=== PATIENT | male | born 1930 | race Hispanic/Latino ===

== ENCOUNTER 2017-10-29 09:48 | Inpatient (IN) | payer MEDICARE, OTHER ==
--- NOTE | 2017-10-29 10:29 | ED PDOC ---
Arrival/HPI - General Chief Complaint: Dizziness/Lightheaded Time Seen by Provider: 10/29/17 09:49 Historian: Patient, Other (friends) - History of Present Illness Narrative History of Present Illness (Text): 10/29/17 10:24 A 87 year old male, whose past medical history includes arthritis, is brought in by EMS from home, accompanied by friends, and presents to the emergency department complaining of dizziness. Patient reports yesterday he was feeling normal, ate regularly, and went to bed at 23:30. States waking up this morning at 07:00 and when trying to get up, began experiencing symptom and felt as though about to fall. He notes dizziness still occurs when sitting. Patient denies any headache, chest pain, shortness of breath, nausea, vomiting, urinary symptoms, dark stools, or any other complaints at this time. Also, patient mentions having seen consulting services manager Dr. Medrano 1-2 weeks ago for cardio evaluation , and was recommended to have stress test performed. PMD: Dr. Aguilar Time/Duration: Other (this morning at 07:00) Past Medical History - Provider Review Nursing Documentation Reviewed: Yes - Cardiac Hx Hypertension: Yes - Pulmonary Hx Respiratory Disorders: No - Neurological Hx Neurological Disorder: No - HEENT Hx HEENT Disorder: No - Renal Hx Renal Disorder: No - Endocrine/Metabolic Hx Endocrine Disorders: No - Hematological/Oncological Hx Blood Disorders: No - Integumentary Hx Dermatological Disorder: No - Musculoskeletal/Rheumatological Hx Arthritis: Yes - Gastrointestinal Hx Gastrointestinal Disorders: No - Genitourinary/Gynecological Hx Genitourinary Disorders: No - Psychiatric Hx Psychophysiologic Disorder: No Hx Substance Use: No Family/Social History - Physician Review Nursing Documentation Reviewed: Yes Family/Social History: No Known Family HX Smoking Status: Never Smoked Hx Alcohol Use: No Hx Substance Use: No Allergies/Home Meds Allergies/Adverse Reactions: Allergies Penicillins Allergy (Verified 10/29/17 10:00) RASH Home Medications: Home Meds Medication Instructions Recorded Confirmed Aspirin [Ecotrin] 81 mg PO DAILY 10/29/17 10/29/17 Metoprolol Succinate 25 mg PO DAILY 10/29/17 10/29/17 Nortriptyline [Nortriptyline HCl] 25 mg PO HS 10/29/17 10/29/17 Valsartan/Hydrochlorothiazide 1 tab PO DAILY 10/29/17 10/29/17 [Valsartan-Hctz 160-12.5 mg Tab] Zolpidem [Ambien] 10 mg PO HS 10/29/17 10/29/17 Review of Systems - Review of Systems Constitutional: Fatigue. absent: Fevers Respiratory: absent: SOB Cardiovascular: absent: Chest Pain, MAYNARD, Orthopnea, Syncope Gastrointestinal: absent: Stool Changes (no dark stools), Nausea, Vomiting Genitourinary Male: absent: Urinary Output Changes Skin: absent: Rash Neurological: Dizziness, Disequilibrium. absent: Headache, Focal Weakness, Speech Changes, Facial Droop Endocrine: absent: Polyuria, Polydipsia Hemo/Lymphatic: absent: Easy Bleeding Physical Exam - Physical Exam Narrative Physical Exam (Text): Head: Atraumatic. Normocephalic. Eyes: PERRL. EOMI. Conjunctivae are not pale. ENT: Mucous membranes are moist and intact. Oropharynx is clear and symmetric. Neck: Supple. Full ROM. No JVD. No lymphadenopathy. Cardiovascular: Regular rate. Regular rhythm. Harsh systolic murmur. Pulmonary/Chest: No evidence of respiratory distress. Clear to auscultation bilaterally. No wheezing, rales or rhonchi. Abdominal: Soft and non-distended. There is no tenderness. No rebound, guarding, or rigidity. No organomegaly. Good bowel sounds. Back: No CVA tenderness. Extremities: No pitting edema. No cyanosis. No clubbing. Full range of motion in all extremities. No calf tenderness. Skin: Skin is warm and dry. No petechiae. No purpura. Neurological: Alert, awake, and oriented to person, place, time, and situation. Normal speech. No facial droop. No pronator drift. No focal motor or sensory deficits. Psychiatric: Good eye contact. Normal interaction, affect, and behavior. Vital Signs Reviewed: Yes Vital Signs Temp Pulse Resp BP Pulse Ox 10/29/17 13:00 80 18 155/98 H 96 10/29/17 11:38 80 18 155/77 H 96 10/29/17 10:01 97.6 F 73 16 156/85 H 98 Temperature: Afebrile Blood Pressure: Hypertensive Pulse: Regular Respiratory Rate: Normal Appearance: Positive for: Well-Appearing Pain Distress: None Mental Status: Positive for: Alert and Oriented X 3 Medical Decision Making ED Course and Treatment: 10/29/17 10:30 Impression: 87 year old male with dizziness. Differential Diagnosis included but are not limited to: chf, valvular disease, cad, neuro disease, arrhytmia Plan: -- EKG -- Head CT -- Chest X-ray -- Labs -- Urinalysis -- Reassess and disposition Progress Notes: Patient complains of dizziness since this AM. On initial exam, no fever, no headache, but dizziness persists while at rest. Exam is significant for prominent heart murmur. He denies any chest pain or shortness of breath. Patient reportedly recently saw consulting services manager Dr. Medrano who had recommended stress test. 10/29/2017 11:[address] IMPRESSION: Limited age-related neuro dengerative are appreciated with no definite acute intracranial findings. Dictator: Mika Carrasquillo MD 10/29/2017 11:25 Chest X-ray IMPRESSION: Borderline CHF patttern. No acute infiltrate or definite pleural effusion bilaterally. Dictator: Mika Carrasquillo MD 10/29/17 12:[address] Medrano. Re-exam, neuro exam intact. Limitations of ct head reviewed with patient. Given cxr, bnp and hear exam findings, highly suspicious of valvular heart disease, I communicated directly with consulting services manager and PMD, patient admitted to telemetry bed for serial exams, cardiac and neuro monitoring. Continues to deny any chest pain or sob in ED. - Lab Interpretations Lab Results: 10/29/17 10:40 10/29/17 10:40 Lab Results 10/29/17 10:40: Sodium 141, Potassium 4.3, Chloride 103, Carbon Dioxide 29, Anion Gap 13, BUN 30 H, Creatinine 1.2, Est GFR ( Amer) > 60, Est GFR ( Non-Af Amer) 57, Random Glucose 136 H, Calcium 9.8, Magnesium 2.0, Total Bilirubin 0.7, AST 29, ALT 25, Alkaline Phosphatase 72, Lactate Dehydrogenase 480, Total Creatine Kinase 38, Troponin I 0.01, NT-Pro-B Natriuret Pep 1210 H, Total Protein 6.6, Albumin 3.7, Globulin 2.8, Albumin/Globulin Ratio 1.3 10/29/17 10:40: PT 11.8, INR 1.03, APTT 30.8 10/29/17 10:40: WBC 11.1 H D, RBC 4.49, Hgb 13.6 L, Hct 41.0 L, MCV 91.3, MCH 30.3, MCHC 33.2, RDW 13.5, Plt Count 141, MPV 10.6, Gran % 53.8, Lymph % (Auto) 40.9 H, [place] % (Auto) 4.3, Eos % (Auto) 0.6 L, Baso % (Auto) 0.4, Gran # 5.96, Lymph # (Auto) 4.5 H, [place] # (Auto) 0.5, Eos # (Auto) 0.1, Baso # (Auto) 0.04 I have reviewed the lab results: Yes - RAD Interpretation Radiology Orders: 10/29/17 10:28 HEAD W/O CONTRAST [CT] Stat CHEST ONE VIEW [RAD] Stat - EKG Interpretation EKG Interpretation (Text): 10/29/17 19:55 EKG at 10:05 normal sinus rhythm with first degree av block and frequent pvcs Interpreted by ED Physician: Yes Type: 12 lead EKG - Medication Orders Current Medication Orders: Aspirin (Ecotrin) 81 mg PO DAILY CHANDAN Last Admin: 10/29/17 18:20 Dose: 81 mg Furosemide (Lasix) 40 mg IV DAILY CHANDAN Losartan Potassium (Cozaar) 100 mg PO DAILY CHANDAN Metoprolol Tartrate (Lopressor) 25 mg PO BRKDIN CHANDAN Nortriptyline HCl (Pamelor) 25 mg PO HS CHANDAN Potassium Chloride (Klor-Con 10) 10 meq PO BRK CHANDAN Last Admin: 10/29/17 18:20 Dose: 10 meq Zolpidem Tartrate (Ambien) 5 mg PO HS PRN PRN Reason: Insomnia Discontinued Medications Pneumococcal Polyvalent Vaccine (Pneumovax 23 Vaccine) 0.5 ml IM .ONCE ONE Stop: 10/29/17 16:10 Zolpidem Tartrate (Ambien) 10 mg PO HS PRN PRN Reason: Insomnia - Scribe Statement The provider has reviewed the documentation as recorded by the Kirti Collins Provider Scribe Attestation: All medical record entries made by the Scribe were at my direction and personally dictated by me. I have reviewed the chart and agree that the record accurately reflects my personal performance of the history, physical exam, medical decision making, and the department course for this patient. I have also personally directed, reviewed, and agree with the discharge instructions and disposition. Disposition/Present on Arrival - Present on Arrival Any Indicators Present on Arrival: No History of DVT/PE: No History of Uncontrolled Diabetes: No Urinary Catheter: No History of Decub. Ulcer: No History Surgical Site Infection Following: None - Disposition Have Diagnosis and Disposition been Completed?: Yes Diagnosis: Dizziness, Near syncope, Heart murmur, Elevated brain natriuretic peptide (BNP ) level, CHF (congestive heart failure) Disposition: HOSPITALIZED Disposition Time: 11:45 Patient Plan: Admission, Telemetry Patient Problems: Current Active Problems Problem Status Onset Dizziness Acute Elevated brain natriuretic peptide (BNP) level Acute Heart murmur Acute Near syncope Acute Condition: SERIOUS
[2017-10-29 10:51] LABS: BASO # 0.04 K/mm3 (0.0-2.0); BASO % 0.4 % (0.0-3.0); EOS # 0.1 (0.0-0.7); EOS % 0.6 % (1.5-5.0); GRAN # 5.96 (1.4-6.5); GRAN % 53.8 % (50.0-68.0); HEMOGLOBIN 13.6 g/dL (14.0-18.0); LYMPH # 4.5 (1.2-3.4); LYMPH % 40.9 % (22.0-35.0); MEAN CELL VOLUME 91.3 fl (80.0-105.0); MEAN CORPUSCULAR HEMOGLOBIN 30.3 pg (25.0-35.0); MEAN CORPUSCULAR HGB CONC 33.2 g/dl (31.0-37.0); MEAN PLATELET VOLUME 10.6 fl (7.0-11.0); MONO # 0.5 (0.1-0.6); MONO % 4.3 % (1.0-6.0); RBC 4.49 10^6/uL (3.5-6.1); RED CELL DISTRIBUTION WIDTH 13.5 % (11.5-14.5); WHITE BLOOD COUNT 11.1 10^3/ul (4.5-11.0)
[2017-10-29 10:59] LABS: ALB/GLOB RATIO 1.3 (1.1-1.8); ALBUMIN 3.7 g/dL (3.0-4.8); ALT/SGPT 25 U/L (7-56); AST/SGOT 29 U/L (17-59); BLOOD UREA NITROGEN 30 mg/dL (7-21); CALCIUM 9.8 mg/dL (8.4-10.5); GFR AFRICAN-AMERICAN > 60; GFR NON-AFRICAN AMERICAN 57; INR 1.03 (0.93-1.08); PARTIAL THROMBOPLASTIN TIME 30.8 Seconds (25.1-36.5); PROTHROMBIN TIME 11.8 SECONDS (9.4-12.5)
[2017-10-29 11:10] LABS: B-TYPE NATRIURETIC PEPTIDE 1210 pg/mL (0-450); TROPONIN I 0.01 ng/mL
--- NOTE | 2017-10-29 11:21 | CT ---
PROCEDURE: CT HEAD WITHOUT CONTRAST. HISTORY: dizziness, near syncope COMPARISON: None available. TECHNIQUE: Axial computed tomography images were obtained through the head/brain without intravenous contrast. Radiation dose: Total exam DLP = 1036.49 mGy-cm. This CT exam was performed using one or more of the following dose reduction techniques: Automated exposure control, adjustment of the mA and/or kV according to patient size, and/or use of iterative reconstruction technique. FINDINGS: HEMORRHAGE: No intracranial hemorrhage. BRAIN: Good corticomedullary differentiation is seen. Mild diffuse expansion of the ventriculosulcal and cisternal spaces is appreciated with limited white matter lucency compatible with diffuse cerebral atrophy and chronic microangiopathy. No suspicious extra-axial fluid collection is identified and the midline brain anatomy appears grossly nonfocal as imaged. There is no mass effect throughout. VENTRICLES: Unremarkable. No hydrocephalus. CALVARIUM: Unremarkable. PARANASAL SINUSES: Limited multifocal ethmoid sinus disease is appreciated with a small cyst or polyp in the left maxillary sinus. MASTOID AIR CELLS: Unremarkable as visualized. No inflammatory changes. OTHER FINDINGS: None. IMPRESSION: Limited age-related neuro degenerative changes are appreciated with no definite acute intracranial findings.
--- NOTE | 2017-10-29 11:26 | RAD ---
PROCEDURE: CHEST RADIOGRAPH, 1 VIEW HISTORY: dizziness COMPARISON: None available. FINDINGS: LUNGS: No definite infiltrate appreciated bilaterally. PLEURA: No pneumothorax or pleural fluid seen. CARDIOVASCULAR: Prominent bronchovascular markings are appreciated, particularly at the bilateral bases which could be a function limited inspiratory volume. Limited CHF is difficult to exclude. Cardiac size is prominent but AP least partially magnified by technique. OSSEOUS STRUCTURES: No significant abnormalities. VISUALIZED UPPER ABDOMEN: Normal. OTHER FINDINGS: None. IMPRESSION: Borderline CHF pattern. No acute infiltrate or definite pleural effusion bilaterally.
[2017-10-29 12:42] VITALS: BMI 26.4
[2017-10-29 13:24] LABS: URINE BILIRUBIN NEGATIVE (NEGATIVE); URINE BLOOD TRACE-INTACT (NEGATIVE); URINE GLUCOSE (UA) NEGATIVE (NEGATIVE); URINE LEUKOCYTE ESTERASE NEGATIVE Leu/uL (NEGATIVE); URINE PROTEIN NEGATIVE mg/dL (<30 mg/dL)
[2017-10-29 13:31] LABS: URINE APPEARANCE CLEAR (CLEAR); URINE COLOR YELLOW (YELLOW)
[2017-10-29 13:36] LABS: URINE EPITHELIAL CELLS 0 - 2 /hpf (0-5); URINE WBC 0 - 2 /hpf (0-6)
[2017-10-29] MEDS ORDERED: Pneumococcal 23-Valent Vaccine IM ONE (16:09)
[2017-10-29] MEDS: Potassium Chloride 10 mEq ER Tab PO SCH (18:20)
--- NOTE | 2017-10-29 18:28 | CARD ---
APPROVED REPORT EKG Measurement Heart [id number] <Conclusion> Sinus rhythm with 1st degree AV block with frequent premature ventricular complexes Otherwise normal ECG
--- NOTE | 2017-10-30 04:33 | HP ---
CHIEF COMPLAINT: Near syncope. HISTORY OF PRESENT ILLNESS: This is an 87-year-old man, known to my brother, Dr. Dillan Aguilar, who sees him periodically in the office for hypertension. I am new to him, have not seen Mr. 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 The patient was in his usual state of health, saw his parboiler, Dr. Medrano, 1 or 2 weeks ago, had an echocardiogram done at that time, and scheduled for a stress test. He was home this morning, woke up out of bed, and later was getting up, and became tremendously dizzy, what he described as a lightheaded woozy feeling. No specific room spinning dizziness. No headache. No chest pain, palpitations or fluttering on the chest. No racing heart. No hot or flushed feeling, just woozy and lightheaded causing him to fall back onto the bed. He lay there a few minutes and eventually was able to get out and called help. His [id number] came, ambulance was summoned and he came to the emergency room. PAST MEDICAL HISTORY: Significant for hypertension, ventricular ectopy as well as murmur as noted above. This is his [facility] hospitalization to the [facility]. His only other visit here was for the wound center for a sore in the sacral area. MEDICATIONS: Include Ambien 10 at bedtime, losartan/HCTZ 160/12.5 every morning, nortriptyline 25 mg at bedtime, metoprolol succinate 25 mg daily, and aspirin 81 mg daily. SOCIAL HISTORY: He does not smoke, but is a former smoker. He occasionally drinks alcohol, but very little, very infrequently and very rarely. He is a with 3 sons. ALLERGIES: HE IS ALLERGIC TO PENICILLIN, TYPE OF REACTION IS UNKNOWN. REVIEW OF SYSTEMS: Significant for arthritis, especially in the shoulders; he cannot raise his shoulders over 90 degrees. He denies chest pain, palpitations, shortness of breath, cardiac, pulmonary, GI, neuro symptomatology, etc. PHYSICAL EXAMINATION: GENERAL: The patient was seen this evening in room 261, bed 1. Sitting comfortably at the edge of the bed. VITAL SIGNS: Showed blood pressure to be slightly elevated at 150/77, he is afebrile, and heart rate is in the 80s. HEENT: Head and neck significant for a forward kyphosis at the neck. Conjunctivae are pink. Mucous membranes are moist. NECK: Supple without masses. There is no JVD. HEART: Regular with frequent extrasystoles and a harsh systolic murmur heard at the upper right sternal border as well as a systolic murmur heard at the apex. ABDOMEN: Soft and nontender. EXTREMITIES: Showed significant +2 edema of the feet and ankles, but only extending a short way up to the tibial area; perhaps suspicious of dependent edema. SKIN: There is a 1.5 inch, round healing ulcerated sore on right gluteal area near midline with questionable rolled edge LABORATORY DATA: Shows slightly elevated white count at 11,000, H and H is reasonable at 13.7 and 43, platelet count is good at 188. Coags are normal. Chemistry showed BUN of 28, random glucose of 103. LFTs, renal function, creatinine are normal. BNP is slightly elevated at 1210. Troponin is negative at 0.01. Urine is unremarkable. IMPRESSION: 1. Near syncope in an 87-year-old man with....... 2. Valvular heart disease with significant murmurs, compatible with aortic stenosis and mitral regurgitation. 3. Leg edema, dependent versus congestive heart failure overloaded, perhaps related to valvular heart disease as listed above. 4. Frequent ventricular ectopy. 5. Decubitus; 1.5 cm round decubitus with rolled edge just right of the gluteal fold. PLAN: We will check with Cardiology regarding a recent echo done at the office. If not, would repeat echo tomorrow to look for critical aortic stenosis. Continue on telemetry. Add a beta-mary and increase dose to slow the heart rate into the 60s, treating what I am suspicious for, that is, . Mild use of diuretics for the leg edema. Elevation may help better. Ectopy evaluation to be determined by Dr. Medrano. Stress test that was scheduled probably should be done in this hospital stay. We will ask surgical opinion with Dr. Petr Parker, who is caring for that decubitus and may ask for a biopsy/ excision of this area to rule out pathologic reason to this nonhealing wound. Petr Aguilar MD Willie # [id number] CARMELA
--- NOTE | 2017-10-30 04:39 | CON ---
DATE: 10/29/2017 LOCATION: Patient in room 261, bed 1. REASON FOR CONSULTATION: Dizziness, hypertension, possible mild CHF. HISTORY OF PRESENT ILLNESS: An 87-year-old male who is known to have hypertension and also chronic venous stasis, admitted with a history that this morning started feeling dizziness. He felt fullness of the head. It was not associated with chest pain, palpitations or shortness of breath. Patient felt like unsteady. He felt like that he is going to fall down, but he did not fall down. PAST MEDICAL HISTORY: Patient denies any hospitalizations. He is known to have hypertension. PERSONAL HISTORY: No history of smoking or drinking. ALLERGIES: PATIENT DENIES ANY ALLERGIES. MEDICATIONS AT HOME: Patient was taking Zolpidem 10 mg p.o. at bedtime, valsartan 160 mg/HCTZ 12.5 mg p.o. daily, metoprolol succinate 75 mg p.o. daily, aspirin 81 mg p.o. daily. REVIEW OF SYSTEMS: All the systems reviewed, positive mentioned in the history, others are negative. PHYSICAL EXAMINATION: VITAL SIGNS: Blood pressure lying down 158/87, sitting 148/81, standing again 158/84, so there is no postural hypotension; respirations 18, pulse 80 and temperature 97.6. HEENT: Head is normocephalic. Eyes, pupils normal, conjunctivae normal. Nose and throat normal. NECK: JVP is low. Carotid equal. THORAX: AP diameter normal. LUNGS: No significant rales. CARDIOVASCULAR: S1 and S2, ejection systolic murmur at aortic area, but patient pansystolic murmur on the apex , which is related to mitral regurgitation. No rub. ABDOMEN: Soft. No tenderness. No organomegaly. EXTREMITIES: Patient has bilateral edema both lower legs along with prominent veins and chronic venous stasis. LABORATORY DATA: WBC 11.1, hemoglobin 13.6, hematocrit 41.0, platelet 141. Sodium 141, potassium 4.3, BUN 30, creatinine 1.2; magnesium, phosphorus, AST, ALT normal. Troponin 0.01. NT-proB natriuretic peptide 1210. Total protein and albumin normal. PT, PTT, INR normal. EKG showed sinus rhythm, prolonged [place], occasional PVCs. Chest x-ray showed cardiomegaly and mild vascular congestion. CAT scan of the head showed age related degenerative changes. Patient's previous cardiac workup, patient through our office had echocardiogram on 06/19/2017, which showed LV was mildly dilated. There was mild LV hypertrophy present. Normal LV systolic function with ejection fraction of 66%. Asymmetric septal hypertrophy, mild aortic regurgitation, [id number] mitral regurgitation, there is calcification in the aortic valve. Patient had carotid ultrasound done through our office on 06/19/2017 that showed [id number] plaque formation with very mild stenosis of 20% to 39% in both ICA, which is not significant. DIAGNOSES: Vertigo, hypertension, mild congestive heart failure probably related to hypertension and mitral regurgitation, chronic venous stasis, arthritis, dizziness, near syncope. PLAN: We will put patient on aspirin 81 mg daily, Lasix 40 mg IV daily, K-Dur 10 mEq p.o. daily, valsartan 160 mg daily. We will monitor intake, outpatient and vital signs. We will monitor blood pressure and monitor for any cardiac arrhythmia. Yenny Medrano MD
[2017-10-30 06:26] LABS: BASO # 0.05 K/mm3 (0.0-2.0); BASO % 0.5 % (0.0-3.0); EOS # 0.1 (0.0-0.7); EOS % 1.1 % (1.5-5.0); GRAN # 3.04 (1.4-6.5); GRAN % 30.2 % (50.0-68.0); HEMOGLOBIN 12.3 g/dL (14.0-18.0); LYMPH # 6.2 (1.2-3.4); LYMPH % 61.2 % (22.0-35.0); MEAN CELL VOLUME 90.5 fl (80.0-105.0); MEAN CORPUSCULAR HEMOGLOBIN 29.9 pg (25.0-35.0); MEAN PLATELET VOLUME 10.8 fl (7.0-11.0); MONO # 0.7 (0.1-0.6); RBC 4.12 10^6/uL (3.5-6.1); RED CELL DISTRIBUTION WIDTH 13.6 % (11.5-14.5); WHITE BLOOD COUNT 10.1 10^3/ul (4.5-11.0)
[2017-10-30 06:58] LABS: BLOOD UREA NITROGEN 26 mg/dL (7-21); CALCIUM 9.4 mg/dL (8.4-10.5); GFR AFRICAN-AMERICAN > 60; GFR NON-AFRICAN AMERICAN > 60
--- NOTE | 2017-10-30 07:07 | PQF CHF ---
This form is a permanent part of the medical record Dr. Aguilar, Please provide specificity for type and severity of CHF when determined. Clarification of your documentation is requested to better reflect the severity of illness and intensity of treatment of your patient. Indicators present [x] Diagnosis of CHF and/or history of CHF [x] BNP > 200 [] Imaging Finding of Pulmonary Edema /Pleural Effusions [x] Fluid/Volume Overload [x] Pitting edema [] Ejection Fraction < 40% (Indicative of Systolic Heart Failure) [x] Ejection Fraction > 40% (Indicative of Diastolic Heart Failure) [] Dyspnea / Orthopenea / Paroxysmal Nocturnal Dyspnea [] Other: Location in the medical record that reflects the above clinical findings: [] Treatment Provided: []lasix IV PHYSICIAN'S RESPONSE Based on your medical judgment of the clinical indicators outlined above, are you treating this patient for a known or suspected: [] Acute CHF [] Systolic [] Diastolic [] Combined [] Chronic CHF [] Systolic [] Diastolic [] Combined [] Acute on Chronic CHF []Systolic [] Diastolic [] Combined [] CHF due hypertension [] Acute systolic []Chronic systolic [] Acute/ chronic systolic [x] Other, please indicate: [x] Seen and admitted a few hours ago. Echo, cardiac work-up, and consult pending [x] If Unable to Determine, please check the box, sign and date. see above. admitted a few hours ago. work-up ordered and pending Present On Admission (POA) Indicator: [x] Present at the time of admission [] Not present at the time of admission [] Clinically Undetermined In responding to this query, please exercise your independent professional judgment. The fact that a question is asked does not imply that any particular answer is desired or expected. Thank you for your clarification on this documentation. If you have any questions please call:[ ] * Thank you, [ ]Jean Claude Robert [facility] #[id number] director loss prevention CARMELA
--- NOTE | 2017-10-30 07:53 | CP.PCM.CON ---
History of Present Illness - History of Present Illness History of Present Illness: 87M presented to [facility] with complaints of dizziness. General surgery was consulted for patients right gluteal skin ulcer. Ulcer was examined, has clean base and no purulent discharge. Optifoam was applied to affected area. Patient denies fever/chills, nausea/vomiting, diarrhea. PMH: HTN,arthritis PSH: denies Allergies: penicillins Soc Hx: denies smoking, denies EtOH use, denies illicit drug use Review of Systems - Review of Systems Review of Systems: 12 pt ROS unremarkable, except as stated in HPI Past Patient History - Past Social History Smoking Status: Never Smoked - CARDIAC Hx Hypertension: Yes - PULMONARY Hx Respiratory Disorders: No - NEUROLOGICAL Hx Neurological Disorder: No - HEENT Hx HEENT Problems: No - RENAL Hx Chronic Kidney Disease: No - ENDOCRINE/METABOLIC Hx Endocrine Disorders: No - HEMATOLOGICAL/ONCOLOGICAL Hx Blood Disorders: No - INTEGUMENTARY Hx Dermatological Problems: No - MUSCULOSKELETAL/RHEUMATOLOGICAL Hx Arthritis: Yes - GASTROINTESTINAL Hx Gastrointestinal Disorders: No - GENITOURINARY/GYNECOLOGICAL Hx Genitourinary Disorders: No - PSYCHIATRIC Hx Psychophysiologic Disorder: No Hx Substance Use: No - SURGICAL HISTORY Hx Surgeries: No Meds Allergies/Adverse Reactions: Allergies Allergy/AdvReac Type Severity Reaction Status Date / Time Penicillins Allergy RASH Verified 10/29/17 10:00 - Medications Medications: Current Medications Aspirin (Ecotrin) 81 mg PO DAILY [facility] Last Admin: 10/29/17 18:20 Dose: 81 mg Furosemide (Lasix) 40 mg IV DAILY [facility] Losartan Potassium (Cozaar) 100 mg PO DAILY [facility] Metoprolol Tartrate (Lopressor) 25 mg PO BRKDIN [facility] Nortriptyline HCl (Pamelor) 25 mg PO HS [facility] Last Admin: 10/29/17 22:37 Dose: 25 mg Potassium Chloride (Klor-Con 10) 10 meq PO BRK [facility] Last Admin: 10/29/17 18:20 Dose: 10 meq Zolpidem Tartrate (Ambien) 5 mg PO HS PRN PRN Reason: Insomnia Last Admin: 10/29/17 23:17 Dose: 5 mg Physical Exam - Constitutional Appears: No Acute Distress - Head Exam Head Exam: NORMOCEPHALIC - Eye Exam Eye Exam: Normal appearance - ENT Exam ENT Exam: Mucous Membranes Moist - Neck Exam Neck exam: Positive for: Normal Inspection - Respiratory Exam Respiratory Exam: NORMAL BREATHING PATTERN - Cardiovascular Exam Cardiovascular Exam: +S1, +S2 - GI/Abdominal Exam GI & Abdominal Exam: Soft - Neurological Exam Neurological exam: Alert, Oriented x3 - Psychiatric Exam Psychiatric exam: Normal Mood - Skin Skin Exam: Normal Color, Warm Additional comments: R gluteal skin ulcer Results - Vital Signs Recent Vital Signs: Last Vital Signs Temp 97.7 F 10/30/17 06:00 Pulse 76 10/30/17 06:00 Resp 20 10/30/17 06:00 BP 129/69 10/30/17 06:00 Pulse Ox 99 10/30/17 06:00 - Labs Result Diagrams: 10/30/17 05:30 10/30/17 05:30 Labs: Laboratory Results - last 24 hr 10/29/17 10/30/17 10/30/17 13:00 05:30 05:30 WBC 10.1 RBC 4.12 Hgb 12.3 L Hct 37.3 L MCV 90.5 MCH 29.9 MCHC 33.0 RDW 13.6 Plt Count 147 MPV 10.8 Gran % 30.2 L Lymph % (Auto) 61.2 H Green % (Auto) 7.0 H Eos % (Auto) 1.1 L Baso % (Auto) 0.5 Gran # 3.04 Lymph # (Auto) 6.2 H Green # (Auto) 0.7 H Eos # (Auto) 0.1 Baso # (Auto) 0.05 Sodium 140 Potassium 3.7 Chloride 103 Carbon Dioxide 29 Anion Gap 11 BUN 26 H Creatinine 1.0 Est GFR ( Amer) > 60 Est GFR (Non-Af Amer) > 60 Random Glucose 102 Calcium 9.4 Urine Color Yellow Urine Appearance Clear Urine pH 7.0 Ur Specific [place] 1.015 Urine Protein Negative Urine Glucose (UA) Negative Urine Ketones Negative Urine Blood Trace-intact H Urine Nitrate Negative Urine Bilirubin Negative Urine Urobilinogen 1.0 H Ur Leukocyte Esterase Negative Urine RBC 2 - 5 Urine WBC 0 - 2 Ur Epithelial Cells 0 - 2 Assessment & Plan - Assessment and Plan (Free Text) Assessment: 87M with right gluteal skin ulceration Plan: medical management per primary local wound care management apply medi honey to affected side apply and change optifoam daily D/w Dr. Keith Boyer PGY2
--- NOTE | 2017-10-30 09:29 | CP.PCM.PCO ---
Physician Communication Note - Physician Communication Note Physician Communication Note: no debridement for right ischial wound, rx medihoney w/ optifoam BID
[2017-10-30] MEDS ORDERED: Aminophylline 25 mg/ml Inj ONE (10:56)
[2017-10-30] MEDS: Potassium Chloride 10 mEq ER Tab PO SCH (13:55)
--- NOTE | 2017-10-30 18:18 | PN ---
DATE: 10/30/2017 SUBJECTIVE: The patient is an 87-year-old male who was admitted with a diagnosis of near syncope. The patient apparently woke up and fell back on the couch on which he was sleeping because of dizziness. He denies any chest pain, palpitations. He then crawled on all fours to the door to unlock them and to the telephone to call a friend who came, evaluated the patient, called the squad and he was admitted through the emergency room. PAST MEDICAL HISTORY: Positive for ventricular arrhythmia and aortic stenosis. The patient was recently evaluated with an echocardiogram and cardiologists, Dr. Medrano and Dr. Willis. When seen this morning, he is sitting up at the edge of the bed. He says he feels weak, but not dizzy. He is status post a thallium stress test earlier this morning. His son and [id number]-[id number] are at bedside. PHYSICAL EXAMINATION: GENERAL: He is awake, alert, and oriented. VITAL SIGNS: He is afebrile with a blood pressure of 129/69 and heart rate of 108. LUNGS: Clear to auscultation and percussion. HEART: Regular with a harsh blowing systolic murmur appreciated. ABDOMEN: Soft and nontender. He tolerated his breakfast and his lunch well this morning. LABORATORY DATA: White blood cell count is 10. BUN and creatinine are 26 and 1 respectively. So, the patient is to be reevaluated in the morning. Concerning his dizziness, we would like to start some physical therapy to increase his activity. Also, the results of the stress test to be discussed with Cardiology. José Aguilar MD
--- NOTE | 2017-10-30 21:31 | CARD ---
APPROVED REPORT Protocol: LEXISCAN Test Type: Lexiscan Sestamibi Stress Test Attending Physician: Dr. Yenny Medrano Referring Physician: Dr. Petr Aguilar Test Indications: Chest Pain Height:6 ft 3 in Weight:219lbs Medications: aspirin, lasix, cozaar, lopressor, pamelor, klor-con, ambien Medical History: 87 year old male with a h/o htn, high cholesterol and arthritis Target HR: 134 bpm Resting ECG: RSR. Resting Heart Rate: 78 bpm Resting Blood Pressure: 146/72mmHg Submaximum (85%): 114 bpm PROCEDURE Pharmacologic stress testing was performed using 0.4mg per 5ml of regadenoson given intravenously over 7-10 seconds. POST EXERCISE Reason for Termination: Protocol completed Target HR: No Max HR: 85 bpm 67% of Maximum Predicted HR: 134 bpm Exercise duration: 00:31 min:sec, 0 Stage Exercise capacity: 1.0METs Max Blood Pressure: 146/72mmHg Blood Pressure response to exercise: normal resting BP - appropriate response Heart Rate response to exercise: appropriate Chest Pain: No, none Angina index: 0 Arrhythmia: Yes, PACs. ST Change: No, none Deviation: 0 mm INTERPRETATION Stress EKG Conclusion: IV LEXISCAN NUCLEAR STRESS TEST NEGATIVE FOR CHEST PAIN AND NEGATIVE FOR ST-T CHANGES. NUCLEAR SCAN REPORT PENDING. Signed by Yenny Medrano Electronically Approved: 10/30/2017 12:23:18 EXAM: Myocardial Perfusion REST/STRESS Stress Test Type: Pharmacologic Imaging Protocol Rest Spect myocardial perfusion imaging was performed in supine position 45 minutes following the injection of 10.3 mCi of Tc-99 Myoview. At peak stress, the patient was injected intravenously with 30.8mCi of Tc-99 tetrofosmin after an infusion time of 0 minutes and 10 seconds. Gated Stress Spect was performed 65 minutes after intravenous Tc-99 Myoview injection. The images were gated to evaluate regional wall motion and calculate ventricular ejection fraction.Images were reconstructed using backfilter projection method in short horizontal and verticle long axis. Spect slices were generated. LV Perfusion The quality of the study is good. The left ventricle is moderately enlarged in size. The right ventricle is unremarkable. The lung uptake is within normal limits. The distribution of tracer reveals an area of mildly to moderately decreased perfusion in the basal anteroseptal/ apical wall and an area of moderately to severely mid to basal inferolateral wall on the stress studyy. The remainder of the LV myocardium is unremarkable. The rest myocardial perfusion study shows partial improvement of the anteroseptal defect and no signifiicant change in the inferolateral defect. Wall Motion Wall motion study shows borderline normal contractility of the left ventricle. LVEF =51%. Conclusion 1. Probably abnormal SPECT myocardial perfusion study. 2. Partially reversible, distal anteroseptal/ apical defect is suspicious of ischemia. 3. Fixed, inferolateral defect is suggestive of myocardial injury/ infarct. 4. Borderline normal gated wall motion of the left ventricle.
--- NOTE | 2017-10-30 22:03 | PN ---
DATE: 10/30/2017 LOCATION: Room 261, bed 1. REASON FOR CONSULTATION AND FOLLOWUP: Dizziness, hypertension, mild CHF. SUBJECTIVE: The patient's dizziness is improving. Denies shortness of breath. Denies chest pain. Denies palpitations. The patient's swelling in legs is also decreasing. The patient is on IV Lasix. PHYSICAL EXAMINATION: VITAL SIGNS: Blood pressure 119/76, respirations 20, pulse 68, temperature 98.5. HEENT: Head is normocephalic. Eyes: Pupils normal. Conjunctivae normal. NECK: JVP low. Carotid equal. THORAX: AP diameter normal. CARDIOVASCULAR: The patient has an ejection systolic murmur at aortic area and pansystolic murmur on the apex, radiating towards the axilla. No rub. ABDOMEN: Soft. No tenderness. No organomegaly. EXTREMITIES: No clubbing. No cyanosis. LABORATORY DATA: WBC 10.1, hemoglobin 12.3, hematocrit 37.3, platelet 147. Sodium 140, potassium 3.7, BUN 26, creatinine 1, random glucose 102, calcium 9.4. NT-proB natriuretic peptide 1210. Total protein and albumin normal. CARDIAC WORKUP: The patient had echo on 06/19/2017 at our office which showed mildly a dilated LV, mild LV hypertrophy, normal LV systolic function with ejection fraction of 66%, asymmetric septal hypertrophy, mild aortic regurgitation, tjyqbyba-wa-pbcfwp mitral regurgitation, calcified aortic valve with aortic sclerosis. The patient had carotid ultrasound done also through our office on 06/19/2017 that showed fywo-wf-zguhagaf plaque formation with very mild stenosis of 20% to 39% in both ICA, which is not significant. DIAGNOSES: Dizziness; vertigo; hypertension; mild congestive heart failure, probably related to hypertension and mitral regurgitation; chronic venous stasis; arthritis; near syncope; calcific aortic valve. PLAN: The patient is going to have IV Lexiscan stress test today to rule out ischemic heart disease and patient presently on Cozaar 100 mg daily, aspirin 81 mg daily, potassium 10 mEq daily, furosemide 40 IV daily, metoprolol 25 mg b.i.d., nortriptyline 25 mg at bedtime. We will do the stress test today and follow the stress test report. Yenny Medrano MD [facility] # [id number]
[2017-10-31 05:46] VITALS: O2SAT 95
[2017-10-31] MEDS: Potassium Chloride 10 mEq ER Tab PO SCH (09:49)
[2017-10-31 13:06] VITALS: BP 142/71; PULSE 51; RESP 18; TEMP 97.7
--- NOTE | 2017-10-31 15:18 | PN ---
DATE: 10/31/2017 LOCATION: The patient is on room 261, bed 1. REASON FOR CONSULTATION AND FOLLOWUP: Dizziness, hypertension, mild CHF. SUBJECTIVE: The patient's dizziness is improved. Difficulty breathing. He denies any shortness of breath or chest pain. No palpitations. His swelling in legs has also improved. Swelling in the leg was related to his chronic venous stasis. The patient's stress test is showing ischemia, but the patient wants to go home for and he states he will come back for cardiac catheterization next week. He is asymptomatic from coronary artery disease point of view. PHYSICAL EXAMINATION VITAL SIGNS: Blood pressure 138/76, respirations 20, pulse 74, temperature 98.4. HEENT: Head is normocephalic. Eyes: Pupils normal. Conjunctivae normal. NECK: JVP low. Carotid equal. THORAX: AP diameter normal. LUNGS: Clear. CARDIOVASCULAR: S1 and S2. Ejection systolic murmur at aortic area, also had pansystolic murmur on the apex going to axilla. ABDOMEN: Soft. No tenderness. No organomegaly. Bowel sounds normal. EXTREMITIES: No clubbing. No cyanosis. LABORATORY DATA: WBC 10.1, hemoglobin 12.3, hematocrit 37.3, platelets 147,000. Sodium 140, potassium 3.7, BUN 26, creatinine 1. NT-proB natriuretic peptide 1210. LV ejection fraction with stress test is 51%. The patient already had echo and carotid ultrasound in our office, which we have mentioned in the finding in our previous notes. The carotid ultrasound on 06/19/2017 showed yvdv-sc-mwoxpyjo plaque formation with very mild stenosis of 20% to 39% in both ICA which is not significant. Echo was done also on 06/19/2017, it showed mildly dilated LV, mild LV hypertrophy, LV systolic ejection fraction about 66%, asymmetric septal hypertrophy, mild aortic regurgitation, ozssrguq-nr-qzsuii mitral regurgitation, calcified aortic valve with aortic sclerosis. DIAGNOSES: Dizziness; vertigo, improved; hypertension, improved; mild congestive heart failure, probably related to hypertension and mitral regurgitation, coronary artery disease, leg edema with chronic venous stasis. PLAN: The patient is told about abnormal stress test, needs cath. Patient agrees of cath, but does not want to do it now. He wants to go home for and will come back next week for cardiac catheterization. In the meantime, the patient is asymptomatic from coronary point of view and the patient will continue losartan 100 mg daily, aspirin 81 mg daily, furosemide - we are going to give him 40 mg p.o. daily, potassium 10 mEq daily, metoprolol 25 mg b.i.d. and will follow up. Yenny Medrano MD
--- NOTE | 2017-10-31 18:32 | DS ---
HISTORY OF PRESENT ILLNESS: The patient is an 87-year-old male with a past medical history positive for ventricular arrhythmia and aortic stenosis. He was admitted to the [facility] 2 days ago after a near syncopal episode where the patient got up from where he was sleeping and fell back on to the sofa. He crawled on all fours to call for a friend, who called for the squad and the patient is admitted. During his hospital stay, he was feeling well. 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 He had a myocardial stress test, which showed an ejection fraction of 51%. The stress test, however, was abnormal. There was a partially reversible distal anteroseptal apical defect, which was suspicious of ischemia. There was a fixed inferolateral defect suggestive of myocardial injury/infarct. Coronary catheterization was suggested; however, the patient insisted on going home to be with his family for Thursday tomorrow. Case was discussed with Dr. Medrano and we agreed we can discharge the patient to home. He is continuing to take his home medications, which include Cozaar 100 mg daily, aspirin 81 mg daily, Klor-Con 10 mEq daily, Lasix 20 p.o. every day, Lopressor 25 mg twice a day, Pamelor 25 mg at bedtime and zolpidem 5 mg at bedtime if needed. The patient is to call Dr. Medrano's office Thursday to schedule the coronary catheterization to be done as an outpatient. Until then, the patient will give us call if any symptoms should arise or recur. FINAL DIAGNOSES: Near syncope, coronary artery disease, left lateral septal ischemia of the heart. José Aguilar MD
== END 2017-10-31 15:29 | disposition home or self-care (01) | DRG 293 ==
LOC: ED 09:48 → ERH 11:24 → 2RNO 13:35
PROVIDERS: ADMIT Internal Medicine; ATTEND Internal Medicine
DX: I11.0 Hypertensive heart disease with heart failure (principal); I50.9 Heart failure, unspecified; I25.10 Atherosclerotic heart disease of native coronary artery without angina pectoris; R55 Syncope and collapse; R42 Dizziness and giddiness; I08.0 Rheumatic disorders of both mitral and aortic valves; I87.8 Other specified disorders of veins; I49.3 Ventricular premature depolarization; M19.90 Unspecified osteoarthritis, unspecified site; L89.322 Pressure ulcer of left buttock, stage 2; L89.312 Pressure ulcer of right buttock, stage 2; Z79.82 Long term (current) use of aspirin; Z87.891 Personal history of nicotine dependence; Z88.0 Allergy status to penicillin

== ENCOUNTER 2017-11-12 08:04 | Day surgery (SDC) | payer MEDICARE, OTHER ==
[2017-11-05 13:14] VITALS: BMI 26.9
--- NOTE | 2017-11-12 03:38 | HP ---
REASON FOR CONSULTATION: Left heart cath, possible angioplasty, abnormal stress test. BRIEF CLINICAL HISTORY: This is an 87-year-old male with past medical history significant for mitral regurgitation, aortic regurgitation, venous stasis, hypertension, hyperlipidemia, who had abnormal stress test; patient is scheduled to have left heart cardiac cath with possible angioplasty. PAST HISTORY: Significant for hypertension, hyperlipidemia. His cardiac workup is as follows: The patient had a stress test, Lexiscan, done on 10/30/2017 that showed abnormal myocardial perfusion study suspicious for anterior wall ischemia, ejection fraction calculated 51%. Echo, 06/2013, shows calcified aortic valve, no significant aortic stenosis, no preserved LV function. The patient had a carotid ultrasound Duplex scan done, 06/19/2017, that showed mild to moderate plaque formation with very mild stenosis of 20% to 39% stenosis in both internal carotid artery. The patient had an echo on 06/19/[address] Medrano's office that shows mildly dilated ventricles and mild hypertrophy present, normal systolic function, ejection fraction 65%, asymmetrical septal hypertrophy, mild aortic regurgitation, moderate to severe mitral regurgitation. There is calcification of the aortic valve. REVIEW OF SYSTEMS: As per HPI. PHYSICAL EXAMINATION: VITAL SIGNS: Temperature afebrile, heart rate 80, blood pressure 148/81. HEENT: PERRLA. Extraocular muscles intact. NECK: Supple. No carotid bruit or thyromegaly. CHEST: Clear to auscultation. HEART: S1 and S2, regular. ABDOMEN: Soft. EXTREMITIES: Clubbing and cyanosis negative. LABORATORY DATA: Blood workup on 10/29/2017 shows WBC 11.1, hemoglobin 13.6, hematocrit 41, platelet count 141. Chemistry shows sodium 141, potassium 4.3, BUN 30, creatinine 1.2, chloride 98. Magnesium, phosphate and AST within normal limit at that time that is dated 10/29/2017. IMPRESSION: Abnormal stress test, hypertension, hyperlipidemia, mitral regurgitation. RECOMMENDATIONS: Further recommendations after cardiac catheterization. The risks, benefits, and alternatives were discussed with the patient. Patient agreed and we will proceed for cardiac catheterization. We will load with aspirin and Plavix. Thank you Dr. Aguilar for providing me the opportunity in taking care of the patient, Wilton Beaulieu. Yenny Willis MD [facility] # [id number]
[2017-11-12 08:43] LABS: BASO # 0.04 K/mm3 (0.0-2.0); BASO % 0.4 % (0.0-3.0); EOS # 0.1 (0.0-0.7); EOS % 0.7 % (1.5-5.0); GRAN # 3.59 (1.4-6.5); HEMOGLOBIN 13.9 g/dL (14.0-18.0); LYMPH # 6.6 (1.2-3.4); LYMPH % 60.7 % (22.0-35.0); MEAN CORPUSCULAR HEMOGLOBIN 30.6 pg (25.0-35.0); MEAN CORPUSCULAR HGB CONC 33.7 g/dl (31.0-37.0); MEAN PLATELET VOLUME 10.7 fl (7.0-11.0); MONO # 0.6 (0.1-0.6); MONO % 5.2 % (1.0-6.0); RBC 4.54 10^6/uL (3.5-6.1); RED CELL DISTRIBUTION WIDTH 13.3 % (11.5-14.5); WHITE BLOOD COUNT 10.9 10^3/ul (4.5-11.0)
[2017-11-12 08:51] LABS: INR 1.08 (0.93-1.08); PROTHROMBIN TIME 12.4 SECONDS (9.4-12.5)
[2017-11-12 08:52] LABS: BLOOD UREA NITROGEN 24 mg/dL (7-21); CALCIUM 9.9 mg/dL (8.4-10.5); GFR AFRICAN-AMERICAN > 60; GFR NON-AFRICAN AMERICAN 57; HDL CHOLESTEROL 59 mg/dL (29-60)
[2017-11-12 08:57] VITALS: O2SAT 100
[2017-11-12 09:03] LABS: LDL CHOLESTEROL 82 mg/dL (0-129)
[2017-11-12] MEDS ORDERED: Verapamil 2 ML ONE (09:14)
[2017-11-12] MEDS ORDERED: Lidocaine 2% Inj (20ml) ONE (09:14)
[2017-11-12] MEDS ORDERED: Midazolam 2 MG/2 ML VIAL ONE ×2 (09:15→10:17)
[2017-11-12] MEDS ORDERED: Iodixanol 320 MG/ML 200 ML BOTTLE IV ONE (09:15)
--- NOTE | 2017-11-12 10:15 | CARD ---
APPROVED REPORT EKG Measurement Heart [id number] <Conclusion> Sinus rhythm with 1st degree AV block PVC No change
[2017-11-12] MEDS ORDERED: Eptifibatide 20 mg/10mL Inj IVP ONE (11:30)
[2017-11-12] MEDS ORDERED: Iohexol 350mgl/ml 50 ML ONE (11:46)
[2017-11-12] MEDS ORDERED: Sodium Chloride 0.9% 1,000 ML IV SCH (12:15)
--- NOTE | 2017-11-12 12:26 | CPOSTOP ---
DATE: 11/12/2017 CARDIOVASCULAR LAB POST PROCEDURE NOTE (CARDIAC CATH/ANGIOPLASTY) DICTATING PHYSICIAN: Yenny Willis MD. RADIOLOGY THERAPIST: [place], neurophysiological technician. TYPE OF ANESTHESIA: Conscious sedation, total dose given 2 mg of Versed, 100 of fentanyl periodically. Started at 1 mg Versed, 50 of fentanyl. PRE-PROCEDURE DIAGNOSES: Unstable angina, abnormal stress test. PROCEDURE PERFORMED: Left heart catheterization and stenting of circumflex, mid, with a drug eluting stent. FINDINGS: Left main is essentially free of significant disease, LAD free of significant disease, RCA free of significant disease. Circ has 80-90% mid stenosis. FINAL DIAGNOSIS: One-vessel disease. POST PROCEDURE CONDITION: Post procedure, the patient is stable. VASCULAR ACCESS: Left radial. CLOSURE DEVICE APPLIED: TR Band. TOTAL RADIATION DOSE: 22,554.7 milligray unit. FLUORO TIME: 7.7 minutes. Yenny Willis MD MTDD
[2017-11-12 14:11] VITALS: RESP 20
[2017-11-12 14:47] LABS: BASO # 0.04 K/mm3 (0.0-2.0); BASO % 0.4 % (0.0-3.0); EOS # 0.1 (0.0-0.7); EOS % 0.5 % (1.5-5.0); GRAN # 4.07 (1.4-6.5); GRAN % 43.5 % (50.0-68.0); HEMOGLOBIN 12.8 g/dL (14.0-18.0); LYMPH # 4.8 (1.2-3.4); LYMPH % 51.7 % (22.0-35.0); MEAN CELL VOLUME 90.3 fl (80.0-105.0); MEAN CORPUSCULAR HEMOGLOBIN 30.2 pg (25.0-35.0); MEAN CORPUSCULAR HGB CONC 33.4 g/dl (31.0-37.0); MEAN PLATELET VOLUME 10.5 fl (7.0-11.0); MONO # 0.4 (0.1-0.6); MONO % 3.9 % (1.0-6.0); RBC 4.24 10^6/uL (3.5-6.1); RED CELL DISTRIBUTION WIDTH 13.1 % (11.5-14.5); WHITE BLOOD COUNT 9.4 10^3/ul (4.5-11.0)
[2017-11-12 15:08] LABS: BLOOD UREA NITROGEN 22 mg/dL (7-21); CALCIUM 9.2 mg/dL (8.4-10.5); GFR AFRICAN-AMERICAN > 60; GFR NON-AFRICAN AMERICAN > 60
--- NOTE | 2017-11-12 16:17 | CARD ---
APPROVED REPORT Procedure(s) performed: Left Heart Catheterization PTCA with Stenting of MId Cx with ENRICO HISTORY The patient is a 87 year-old male with a history of : most recent EF: 51%. (EF Method: RADIONUCLIDE), renal failure without dialysis, tobacco history() : The patient is a former smoker , hypertension , dyslipidemia , Hx of abnormal Stress anterior wall ischemia. INDICATION The indication(s) include : positive stress test. CASE TECHNIQUE The patient was brought electively to the Cardiac Catheterization Laboratory in a fasting state and was prepped and draped in a sterile manner. The left wrist was infiltrated with 2% Lidocaine subcutaneous anesthesia. A 6FR GLIDESHEATH ACCESS KIT sheath was inserted into the left radial artery without difficulty. Coronary angiography was performed using coronary diagnostic catheters. The left coronary system was accessed and visualized with a Diagnostic ,5 Fr JL 4 catheter. The right coronary system was accessed and visualized with a Diagnostic ,5 Fr JR 4 catheter. The left ventricle was accessed and visualized with a 5 Fr Pigtail 145 (Angled) catheter. Left ventricular/Aortic Valve gradient assessed on pullback. Left ventriculogram was performed in ARMANDO projection. Closure device was deployed with a Fr TR Band (Large) without any complications. The patient tolerated the procedure well and there were no complications associated with the procedure. Vessel Analysis The patient's coronary anatomy is right dominant. The left main coronary artery is a medium size vessel with diffuse calcification noted throughout this vessel and without significant stenosis. The left main bifurcates to the left anterior descending and circumflex. The left anterior descending artery is a large size vessel with diffuse calcification noted throughout this vessel and without significant stenosis. The first diagonal branch is a medium size vessel with diffuse calcification noted throughout this vessel and without significant stenosis. The second diagonal branch is a small size vessel with diffuse calcification noted throughout this vessel and without significant stenosis. The circumflex artery is a large size vessel with diffuse calcification noted throughout this vessel and with significant stenosis. There is a 80-90% stenosis in the mid segment. The first obtuse marginal branch is a medium size vessel with diffuse calcification noted throughout this vessel and without significant stenosis. There is a 60% stenosis in the proximal segment. The right coronary artery is a large size vessel with diffuse calcification noted throughout this vessel and without significant stenosis. The right posterior descending artery is a large size vessel with diffuse calcification noted throughout this vessel and without significant stenosis. The right posterolateral branch is a large size vessel with diffuse calcification noted throughout this vessel and without significant stenosis. Left Ventricle The left ventricle is borderline in size with low viktoria;l contractility. Ischemic cardiomyopathy. The left ventricular ejection fraction is estimated to be 50%. The left ventricular end diastolic pressure is 20-25 mmHg. There was no gradient across the aortic valve upon pullback. PCI Technique Lesion Anticoagulation was achieved with Heparin. Percutaneous coronary intervention was performed on the mid circumflex artery segment. The lesion stenosis prior to intervention was 80-90% with KOMAL 2 flow. A 6 Fr XB 3.5 Guide Catheter was used to engage the ostium. BALLOON DILATION A Balloon catheter 3.0 x 8 mm Trek RX was inserted and inflated up to 12.00atm for 11seconds. STENT DEPLOYMENT A drug-eluting stent STENT RESOLUTE JASMYNE 4.0 X 12 was inserted and inflated up to 12.00atm for 15seconds. POST STENT DEPLOYMENT BALLOON DILATION A Balloon catheter 4.0 x 9 mm Sprinter NC was inserted and inflated up to 12.00atm for 17seconds. Final angiography reveals 0 % stenosis with KOMAL 3 flow. Conclusion Single vessel Critical Mid Cx diz. Low normal LV Fx. EF-50%, ED_[id number] mmof hg. Successful PTCA with ENRICO of Mid Cx Recommendations Daily ASA with Plavix for at least one year Cardiac Risk Reduction Program Weight Loss Reduction Program Add low dose Statin in current drug regimen. Cc;; Drs. Colleen Aguilar / Mitchell.
[2017-11-12] MEDS ORDERED: Bacitracin 500 Units/gm Oint Foilpak UD ONE (16:40)
[2017-11-12 17:25] VITALS: PULSE 68
[2017-11-12 17:45] VITALS: TEMP 97.7
[2017-11-12 18:35] VITALS: BP 140/72
--- NOTE | 2017-11-13 07:34 | CARD ---
APPROVED REPORT EKG Measurement Heart [id number] <Conclusion> Sinus rhythm with sinus arrhythmia with 1st degree AV block Otherwise normal ECG
[2017-11-13] MEDS ORDERED: Metoprolol Succinate 25 mg XL Tab PO SCH (10:00)
== END 2017-11-12 18:49 | disposition home or self-care (01) ==
LOC: CATH 08:04 → 2RNO 12:16 → CATH 18:49
PROVIDERS: ATTEND Internal Medicine Cardiovascular Disease
DX: I25.10 Atherosclerotic heart disease of native coronary artery without angina pectoris (principal); I25.5 Ischemic cardiomyopathy; I10 Essential (primary) hypertension; I08.0 Rheumatic disorders of both mitral and aortic valves; E78.5 Hyperlipidemia, unspecified; I87.8 Other specified disorders of veins; Z87.891 Personal history of nicotine dependence
CPT/HCPCS: 36415; 80048; 80061; 85025; 85175; 85610; 85730; 86850; 86900; 93005; 93458; 99152; 99153; C1725 ×2; C1769 ×2; C1874; C1887 ×3; C9600; J1327; J1644 ×2; J2250; J3010; J7030; J7040; Q9966; Q9967

== ENCOUNTER 2018-12-17 03:54 | Observation (INO) | payer MEDICARE, OTHER ==
--- NOTE | 2018-12-17 05:08 | ED PDOC ---
Arrival/HPI - General Chief Complaint: Trauma Time Seen by Provider: 12/17/18 04:12 Historian: Patient - History of Present Illness Narrative History of Present Illness (Text): 12/17/18 05:05 88 year old male, whose past medical history includes arthritis, presents to the emergency department by EMS, status post fall. Patient informs he was going to the bathroom, and the next thing he knew he fell. Patient informs hitting the left side of his head and bleeding. Patient denies LOC. Patient informs getting up on his own and calling his daughter. Patient denies any fevers, chills, diaphoresis, abdominal pain, nausea, vomiting, diarrhea, back pain, neck pain, or any other complaint. PMD: Dr. Aguilar Time/Duration: Prior to Arrival Symptom Onset: Sudden Symptom Course: Unchanged Activities at Onset: Light Context: Home Past Medical History - Provider Review Nursing Documentation Reviewed: Yes Primary Care Provider: José Aguilar - Infectious Disease Hx of Infectious Diseases: None - Cardiac Hx Pacemaker: No - Pulmonary Hx Respiratory Disorders: No - Neurological Hx Paralysis: No - HEENT Hx HEENT Disorder: No - Renal Hx Renal Disorder: No - Endocrine/Metabolic Hx Endocrine Disorders: No - Hematological/Oncological Hx Blood Transfusions: No - Integumentary Hx Dermatological Disorder: No - Musculoskeletal/Rheumatological Hx Musculoskeletal Disorders: Yes - Gastrointestinal Hx Gastrointestinal Disorders: No - Genitourinary/Gynecological Hx Genitourinary Disorders: No - Psychiatric Hx Physical Abuse: No Hx Substance Use: No - Anesthesia Hx Anesthesia Reactions: No Hx Malignant Hyperthermia: No - Suicidal Assessment Feels Threatened In Home Enviroment: No Family/Social History - Physician Review Nursing Documentation Reviewed: Yes Family/Social History: No Known Family HX Smoking Status: Never Smoked Hx Alcohol Use: Yes (ABOUT 1 DRINK A DAY) Hx Substance Use: No Allergies/Home Meds Allergies/Adverse Reactions: Allergies Penicillins Allergy (Verified 12/17/18 04:00) RASH Home Medications: Home Meds Medication Instructions Recorded Confirmed Aspirin [Ecotrin] 81 mg PO DAILY 10/29/17 12/17/18 Metoprolol Succinate 25 mg PO DAILY 10/29/17 12/17/18 Nortriptyline [Nortriptyline HCl] 25 mg PO HS 10/29/17 12/17/18 Valsartan/Hydrochlorothiazide 1 tab PO DAILY 10/29/17 12/17/18 [Valsartan-Hctz 160-12.5 mg Tab] Zolpidem [Ambien] 10 mg PO HS 10/29/17 12/17/18 Review of Systems - Physician Review All systems were reviewed & negative as marked: Yes - Review of Systems Constitutional: absent: Fevers, Night Sweats Gastrointestinal: absent: Abdominal Pain, Diarrhea, Nausea, Vomiting Musculoskeletal: absent: Back Pain, Neck Pain Skin: Laceration Endocrine: absent: Diaphoresis Physical Exam - Physical Exam Narrative Physical Exam (Text): 12/17/18 05:08 Gen: VS reviewed, alert, well developed, well nourished, nontoxic, mild distress Eye: EOMI, PERRL ENT: normal pharynx. Face: No mastoid tenderness, no clinical correlation for mastoiditis Neck: no JVD, supple, no adenopathy CV: regular rate, regular rhythm, no rubs,no murmur, S1, S2 Pulm: no distress, clear to auscultation, no wheeze, no rhonchi, breath sounds equal, no rales Abd: soft, nontender, no guarding, no rebound, no rigidity Ext: no edema Skin: good color, no rash, no cyanosis Psych: responds appropriately to questions, normal affect Neuro: oriented x3, CN2-12 intact grossly, motor intact, sensation intact 12/17/18 05:39 Vital Signs Reviewed: Yes Vital Signs Temp Pulse Resp BP Pulse Ox 12/17/18 04:03 97.9 F 84 18 111/60 96 Temperature: Afebrile Blood Pressure: Normal Pulse: Regular Respiratory Rate: Normal Appearance: Positive for: Well-Appearing, Non-Toxic, Comfortable Pain Distress: None Mental Status: Positive for: Alert and Oriented X 3 Medical Decision Making ED Course and Treatment: 12/17/18 05:09 Impression: 88 year old male presents with head laceration s/p fall. Plan: -- VBG -- CT Head -- EKG -- CMP -- CBC, Platelets -- Urinary Straight Cath -- Urinalysis -- Reassess and disposition Prior Visits: Notes and results from previous visits were reviewed. 12/17/18 07:30 patient presents from home with fall, head injury in the middle of the night. patient is not exactly sure how he fell. patient denies LOC but there appears to be a component of amnesia as to how he fell to the ground. workup unremarkable except anemia. with presumed syncopal event would consider admit. at this time will do ambulation trial as the pt's bp is relatively low. patient clearly states he does not want to stay in the hospital. - RAD Interpretation Narrative RAD Interpretations (Text): 12/17/18 05:38 CT scan of the head CLINICAL HISTORY: Trauma. TECHNIQUE: Multiple axial CT images were obtained through the brain without IV contrast material. COMMENTS: Mild right mastoid effusion. There is normal configuration of sella turcica. There are no intra or extra- axial collections. There is no mass effect or midline shift. There is no evidence of hematoma formation. No hydrocephalus is present. The ventricles are symmetrical. No abnormal calcifications are present. There is diffuse age-appropriate cerebellar and cerebral atrophy with proportionally dilated ventricles and cortical sulci. There are bilateral periventricular and subcortical white matter hypolucencies compatible with mild chronic microvascular disease. Otherwise, no significant focal abnormalities are seen either in the posterior f terri or supratentorial compartment. IMPRESSION: 1. Age-appropriate cerebellar and cerebral atrophy. 2. Mild chronic microvascular disease. 3. No evidence of acute intracranial pathology. 4. Mild right mastoid effusion. 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: Radiologist - EKG Interpretation EKG Interpretation (Text): 12/17/18 07:36 ekg my read: sinus rhythm at 78 bpm, nml qrs, nml axis, no acute sttw abn Interpreted by ED Physician: Yes Procedure: Wound Repair - Time Performed Time Performed: 07:00 - Time Out Time Out: Side verified, Site verified, Patient ID confirmed - Consent Obtained Consent obtained: Verbal - Performed by Performed by: Attending Physician - Indications Indication(s):: Laceration - Location Location:: Left, Eyebrow Shape:: Stellate Dimensions Length cm: 2cm Depth:: Muscle - Anesthetic Technique Anesthetic Technique: Local Local/Regional Anesthetic:: Lidocaine 1% w/epi - Debris Debris:: None - Irrigated Irrigated with ml of normal saline: wound was irrigated with copious saline - Complexity Complexity:: Intermediate (2 layer) (subq tissue and muscle was approximated with 3 4-0moncryl. epider was closed with 5 4-0 nylon. all sutures simple interrupted.) - Complications Complications: none - Patient tolerated procedure Patient Tolerated Procedure:: Well - Scribe Statement The provider has reviewed the documentation as recorded by the Scribe Mohamud Hernandez All medical record entries made by the Scribe were at my direction and personally dictated by me. I have reviewed the chart and agree that the record accurately reflects my personal performance of the history, physical exam, medical decision making, and the department course for this patient. I have also personally directed, reviewed, and agree with the discharge instructions and disposition. Disposition/Present on Arrival - Present on Arrival Any Indicators Present on Arrival: No History of DVT/PE: No History of Uncontrolled Diabetes: No Urinary Catheter: No History of Decub. Ulcer: No History Surgical Site Infection Following: None - Disposition Have Diagnosis and Disposition been Completed?: Yes Diagnosis: Head injury, Eyebrow laceration Disposition Time: 07:00 Patient Problems: Current Active Problems Problem Status Onset Head injury Acute Eyebrow laceration Acute Additional Instructions: have the sutures removed in 5-7 days. stay well hydrated (water). return for any new or worsening symptoms. Forms: [employer] ([place])
[2018-12-17 05:12] LABS: BASO # 0.04 K/mm3 (0.0-2.0); BASO % 0.4 % (0.0-3.0); EOS # 0.1 (0.0-0.7); EOS % 0.6 % (1.5-5.0); LYMPH # 4.5 (1.2-3.4); LYMPH % 46.8 % (22.0-35.0); MEAN CORPUSCULAR HEMOGLOBIN 26.6 pg (25.0-35.0); MEAN CORPUSCULAR HGB CONC 31.4 g/dl (31.0-37.0); MEAN PLATELET VOLUME 10.5 fl (7.0-11.0); MONO # 0.6 (0.1-0.6); RBC 3.53 10^6/uL (3.5-6.1); RED CELL DISTRIBUTION WIDTH 15.1 % (11.5-14.5); WHITE BLOOD COUNT 9.6 10^3/uL (4.5-11.0)
[2018-12-17 05:15] LABS: VENOUS BLOOD GAS BASE EXCESS 3.1 mmol/L (0.0-2.0); VENOUS BLOOD GAS PO2 37 mm/Hg (30-55); VENOUS BLOOD PH 7.37 (7.32-7.43)
[2018-12-17 05:22] LABS: ALBUMIN 3.4 g/dL (3.0-4.8); CALCIUM 8.9 mg/dL (8.4-10.5)
[2018-12-17 05:33] LABS: INR 1.23; PARTIAL THROMBOPLASTIN TIME 39.8 Seconds (26.9-38.3); PROTHROMBIN TIME 13.9 SECONDS (9.4-12.5)
[2018-12-17 05:37] LABS: HEMOGLOBIN 9.4 g/dL (14.0-18.0); MEAN CELL VOLUME 84.7 fl (80.0-105.0)
[2018-12-17] MEDS ORDERED: Lidocaine 1%/Epinephrine 1:100000 30 ml vial IJ ONE (06:22)
[2018-12-17] MEDS ORDERED: Lidocaine 1% Inj (20ml) ONE (06:27)
[2018-12-17] MEDS ORDERED: Bacitracin 500 Units/gm Oint Foilpak UD TOP ONE (07:47)
--- NOTE | 2018-12-17 07:52 | ED PDOC ---
Physical Exam Vital Signs Reviewed: Yes Vital Signs Temp Pulse Resp BP Pulse Ox 12/17/18 07:47 81 18 122/68 100 12/17/18 04:03 97.9 F 84 18 111/60 96 Temperature: Afebrile Blood Pressure: Normal Pulse: Regular Respiratory Rate: Normal Appearance: Positive for: Well-Appearing, Non-Toxic, Comfortable Pain Distress: None Mental Status: Positive for: Alert and Oriented X 3 Medical Decision Making ED Course and Treatment: 12/17/18 07:50: Case endorsed to me by Dr. Adam. Patient presents to the emergency department for further evaluation of head injury s/p reported fall vs. syncope. Patient has orthostatic changes. Pending reassessment and disposition. 12/17/18 07:47: Case discussed in detail with Dr. Aguilar who accepts patient to his service for admission. - Lab Interpretations Lab Results: pO2 37 mm/Hg (30-55) 12/17/18 04:49 VBG pH 7.37 (7.32-7.43) 12/17/18 04:49 VBG pCO2 51.0 (40-60) 12/17/18 04:49 VBG HCO3 29.5 mmol/l (21-28) H 12/17/18 04:49 VBG Total CO2 31.1 mmol.L (22-28) H 12/17/18 04:49 VBG O2 Sat (Calc) 69.7 % (40-65) H 12/17/18 04:49 VBG Base Excess 3.1 mmol/L (0.0-2.0) H 12/17/18 04:49 VBG Potassium 3.6 mmol/L (3.6-5.2) 12/17/18 04:49 Sodium 137.0 mmol/L (132-148) 12/17/18 04:49 Chloride 104.0 mmol/L (98-107) 12/17/18 04:49 Glucose 121 mg/dl (75-110) H 12/17/18 04:49 Lactate 1.1 mmol/L (0.7-2.1) 12/17/18 04:49 FiO2 21.0 % 12/17/18 04:49 PT 13.9 SECONDS (9.4-12.5) H 12/17/18 04:49 INR 1.23 12/17/18 04:49 APTT 39.8 Seconds (26.9-38.3) H 12/17/18 04:49 Total Bilirubin 0.6 mg/dL (0.2-1.3) 12/17/18 04:49 AST 22 U/L (17-59) 12/17/18 04:49 ALT 17 U/L (7-56) 12/17/18 04:49 Alkaline Phosphatase 71 U/L (38-126) 12/17/18 04:49 Total Protein 6.7 g/dL (5.8-8.3) 12/17/18 04:49 Albumin 3.4 g/dL (3.0-4.8) 12/17/18 04:49 Globulin 3.3 gm/dL 12/17/18 04:49 Albumin/Globulin Ratio 1.0 (1.1-1.8) L 12/17/18 04:49 - RAD Interpretation Radiology Orders: 12/17/18 04:30 HEAD W/O CONTRAST [CT] Stat CHEST ONE VIEW [RAD] Stat - Medication Orders Current Medication Orders: Discontinued Medications Bacitracin (Bacitracin) 1 ea TOP ONCE ONE Stop: 12/17/18 07:48 Lidocaine/Epinephrine (Lidocaine 1%/Epinephrine 1:[id number] 30 Ml) 30 ml IJ ONCE ONE Stop: 12/17/18 06:23 Last Admin: 12/17/18 07:13 Dose: 30 ml Comments: given to ER MD Adam. - Scribe Statement The provider has reviewed the documentation as recorded by the Scribe Jess Marshall Provider Scribe Attestation: All medical record entries made by the Scribe were at my direction and personally dictated by me. I have reviewed the chart and agree that the record accurately reflects my personal performance of the history, physical exam, medical decision making, and the department course for this patient. I have also personally directed, reviewed, and agree with the discharge instructions and disposition. Disposition/Present on Arrival - Present on Arrival Any Indicators Present on Arrival: No History of DVT/PE: No History of Uncontrolled Diabetes: No Urinary Catheter: No History of Decub. Ulcer: No History Surgical Site Infection Following: None - Disposition Have Diagnosis and Disposition been Completed?: Yes Diagnosis: Head injury, Eyebrow laceration, Syncope Disposition: HOSPITALIZED Disposition Time: 07:50 Patient Plan: Admission Condition: GUARDED
[2018-12-17 08:20] LABS: URINE BILIRUBIN NEGATIVE (NEGATIVE); URINE BLOOD NEGATIVE (NEGATIVE); URINE GLUCOSE (UA) NEGATIVE (NEGATIVE); URINE LEUKOCYTE ESTERASE NEGATIVE Leu/uL (NEGATIVE); URINE PROTEIN NEGATIVE mg/dL (<30 mg/dL)
[2018-12-17 08:22] LABS: URINE APPEARANCE CLEAR (CLEAR); URINE COLOR YELLOW (YELLOW)
--- NOTE | 2018-12-17 09:40 | RAD ---
Date of service: 12/17/2018 PROCEDURE: CHEST RADIOGRAPH, 1 VIEW HISTORY: chf COMPARISON: 10/29/2017 FINDINGS: LUNGS: Clear. PLEURA: No pneumothorax or pleural fluid seen. CARDIOVASCULAR: No aortic atherosclerotic calcification present. Normal. OSSEOUS STRUCTURES: No significant abnormalities. VISUALIZED UPPER ABDOMEN: Normal. OTHER FINDINGS: None. IMPRESSION: No active disease.
--- NOTE | 2018-12-17 09:53 | CT ---
Date of service: 12/17/2018 PROCEDURE: CT HEAD WITHOUT CONTRAST. HISTORY: trauma COMPARISON: None available. TECHNIQUE: Axial computed tomography images were obtained through the head/brain without intravenous contrast. Radiation dose: Total exam DLP = 1092.26 mGy-cm. This CT exam was performed using one or more of the following dose reduction techniques: Automated exposure control, adjustment of the mA and/or kV according to patient size, and/or use of iterative reconstruction technique. FINDINGS: HEMORRHAGE: No intracranial hemorrhage. BRAIN: No mass effect or edema. Mild atrophy. Mild chronic microvascular disease. VENTRICLES: Unremarkable. No hydrocephalus. CALVARIUM: Unremarkable. PARANASAL SINUSES: Unremarkable as visualized. No significant inflammatory changes. MASTOID AIR CELLS: Unremarkable as visualized. No inflammatory changes. OTHER FINDINGS: The report concurs with the preliminary [facility] report IMPRESSION: No acute intracranial findings
[2018-12-17] MEDS ORDERED: Silver Sulfadiazine 1% Cream (25 gm) TP SCH (10:30)
--- NOTE | 2018-12-17 13:00 | CP.PCM.CON ---
<Katherine Phan - Last Filed: 12/17/18 13:01> History of Present Illness - History of Present Illness History of Present Illness: Podiatry Consult Note: Dr. Spencer 88M patient with PMHx of HTN, arthritis, seen and examined at bedside for elongated nails and dried sanginous fluid on feet. Patient states that he fell and hit his head causing a laceration to his left eyebrow. He presented to the ED for testing. He denies any pain to his feet and follows up with his pathology laboratory director as an outpatient. Patient attributes the dried blood on his feet from his eyebrow laceration but he is not sure. He denies any trauma to his feet or any open wounds. Denies nausea/vomiting/fever. PMHx: HTN, arthritis ALL: PCN Past Patient History - Infectious Disease Hx of Infectious Diseases: None - Past Social History Smoking Status: Never Smoked - CARDIAC Hx Pacemaker: No - PULMONARY Hx Respiratory Disorders: No - NEUROLOGICAL Hx Paralysis: No - HEENT Hx HEENT Problems: No - RENAL Hx Chronic Kidney Disease: No - ENDOCRINE/METABOLIC Hx Endocrine Disorders: No - HEMATOLOGICAL/ONCOLOGICAL Hx Blood Transfusions: No - INTEGUMENTARY Hx Dermatological Problems: No - MUSCULOSKELETAL/RHEUMATOLOGICAL Hx Musculoskeletal Disorders: Yes - GASTROINTESTINAL Hx Gastrointestinal Disorders: No - GENITOURINARY/GYNECOLOGICAL Hx Genitourinary Disorders: No - PSYCHIATRIC Hx Physical Abuse: No Hx Substance Use: No - SURGICAL HISTORY Hx Surgeries: No - ANESTHESIA Hx Anesthesia Reactions: No Hx Malignant Hyperthermia: No Meds Allergies/Adverse Reactions: Allergies Allergy/AdvReac Type Severity Reaction Status Date / Time Penicillins Allergy RASH Verified 12/17/18 04:00 - Medications Medications: Current Medications Metoprolol Tartrate (Lopressor) 25 mg PO BRKDIN [facility] Nystatin (Nystatin Oral Susp) 5 ml PO QID [facility] Silver Sulfadiazine (Silvadene 1% 25 Gm) 0 gm TP BID [facility] Last Admin: 12/17/18 12:06 Dose: 25 gm Physical Exam - Constitutional Appears: Non-toxic, No Acute Distress - Head Exam Head Exam: ATRAUMATIC, NORMOCEPHALIC - Extremities Exam Additional comments: Vascular: DP/PT pulses faintly palpable, CFT < 3 seconds, TG warm to warm, no edema appreciated Ortho: No pain with palpation, MMT 4/5, no pain with calf compression Neuro: Gross sensation intact Derm: No open lesions, no ulcerations, elongated dystrophic nails x5 (hallux b/l, 2nd digit b/l, 5th digit R), no erythema, no clinical signs of infection - Neurological Exam Neurological exam: Alert, Oriented x3 - Psychiatric Exam Psychiatric exam: Normal Affect, Normal Mood Results - Vital Signs Recent Vital Signs: Last Vital Signs Temp 98.0 F 12/17/18 12:37 Pulse 85 12/17/18 12:37 Resp 18 12/17/18 12:37 BP 116/85 12/17/18 12:37 Pulse Ox 98 12/17/18 08:38 - Labs Result Diagrams: 12/17/18 04:49 12/17/18 04:49 Labs: Laboratory Results - last 24 hr 12/17/18 12/17/18 12/17/18 04:49 04:49 04:49 WBC 9.6 RBC 3.53 Hgb 9.4 L D Hct 29.9 L MCV 84.7 D MCH 26.6 MCHC 31.4 RDW 15.1 H Plt Count 194 MPV 10.5 Neut % (Auto) 46.2 L Lymph % (Auto) 46.8 H [place] % (Auto) 6.0 Eos % (Auto) 0.6 L Baso % (Auto) 0.4 Lymph # (Auto) 4.5 H [place] # (Auto) 0.6 Eos # (Auto) 0.1 Baso # (Auto) 0.04 Absolute Neuts (auto) 4.42 PT 13.9 H INR 1.23 APTT 39.8 H pO2 37 VBG pH 7.37 VBG pCO2 51.0 VBG HCO3 29.5 H VBG Total CO2 31.1 H VBG O2 Sat (Calc) 69.7 H VBG Base Excess 3.1 H VBG Potassium 3.6 Sodium 137.0 Chloride 104.0 Glucose 121 H Lactate 1.1 FiO2 21.0 Potassium Carbon Dioxide Anion Gap BUN Creatinine Est GFR ( Amer) Est GFR (Non-Af Amer) Random Glucose Calcium Total Bilirubin AST ALT Alkaline Phosphatase Total Protein Albumin Globulin Albumin/Globulin Ratio Venous Blood Potassium 3.6 Urine Color Urine Appearance Urine pH Ur Specific [place] Urine Protein Urine Glucose (UA) Urine Ketones Urine Blood Urine Nitrate Urine Bilirubin Urine Urobilinogen Ur Leukocyte Esterase 12/17/18 12/17/18 04:49 07:45 WBC RBC Hgb Hct MCV MCH MCHC RDW Plt Count MPV Neut % (Auto) Lymph % (Auto) [place] % (Auto) Eos % (Auto) Baso % (Auto) Lymph # (Auto) [place] # (Auto) Eos # (Auto) Baso # (Auto) Absolute Neuts (auto) PT INR APTT pO2 VBG pH VBG pCO2 VBG HCO3 VBG Total CO2 VBG O2 Sat (Calc) VBG Base Excess VBG Potassium Sodium 140 Chloride 103 Glucose Lactate FiO2 Potassium 3.9 Carbon Dioxide 30 Anion Gap 11 BUN 27 H Creatinine 1.4 Est GFR ( Amer) 58 Est GFR (Non-Af Amer) 48 Random Glucose 124 H Calcium 8.9 Total Bilirubin 0.6 AST 22 ALT 17 Alkaline Phosphatase 71 Total Protein 6.7 Albumin 3.4 Globulin 3.3 Albumin/Globulin Ratio 1.0 L Venous Blood Potassium Urine Color Yellow Urine Appearance Clear Urine pH 7.0 Ur Specific [place] 1.015 Urine Protein Negative Urine Glucose (UA) Negative Urine Ketones Negative Urine Blood Negative Urine Nitrate Negative Urine Bilirubin Negative Urine Urobilinogen 4.0 H Ur Leukocyte Esterase Negative Assessment & Plan - Assessment and Plan (Free Text) Assessment: 88M patient seen and examined for elongated nails/dry sanginous fluid Plan: Patient seen and examined with all questions and concerns addressed Sanginous fluid cleaned off feet- no open lesions Nails debrided x 5 without incident Podiatry to sign off at this time, please reconsult as needed Thank you for the consult - Date & Time Date: 12/17/18 Time: 12:57 <Gregg Spencer - Last Filed: 12/17/18 16:36> Meds - Medications Medications: Current Medications Metoprolol Tartrate (Lopressor) 25 mg PO BRKDIN [facility] Nystatin (Nystatin Oral Susp) 5 ml PO QID [facility] Last Admin: 12/17/18 15:04 Dose: 5 ml Results - Vital Signs Recent Vital Signs: Last Vital Signs Temp 98.0 F 12/17/18 12:37 Pulse 89 12/17/18 13:33 Resp 18 12/17/18 13:33 BP 116/85 12/17/18 12:37 Pulse Ox 100 12/17/18 10:00 - Labs Result Diagrams: 12/17/18 04:49 12/17/18 04:49 Labs: Laboratory Results - last 24 hr 12/17/18 12/17/18 12/17/18 04:49 04:49 04:49 WBC 9.6 RBC 3.53 Hgb 9.4 L D Hct 29.9 L MCV 84.7 D MCH 26.6 MCHC 31.4 RDW 15.1 H Plt Count 194 MPV 10.5 Neut % (Auto) 46.2 L Lymph % (Auto) 46.8 H [place] % (Auto) 6.0 Eos % (Auto) 0.6 L Baso % (Auto) 0.4 Lymph # (Auto) 4.5 H [place] # (Auto) 0.6 Eos # (Auto) 0.1 Baso # (Auto) 0.04 Absolute Neuts (auto) 4.42 PT 13.9 H INR 1.23 APTT 39.8 H pO2 37 VBG pH 7.37 VBG pCO2 51.0 VBG HCO3 29.5 H VBG Total CO2 31.1 H VBG O2 Sat (Calc) 69.7 H VBG Base Excess 3.1 H VBG Potassium 3.6 Sodium 137.0 Chloride 104.0 Glucose 121 H Lactate 1.1 FiO2 21.0 Potassium Carbon Dioxide Anion Gap BUN Creatinine Est GFR ( Amer) Est GFR (Non-Af Amer) Random Glucose Calcium Total Bilirubin AST ALT Alkaline Phosphatase Total Protein Albumin Globulin Albumin/Globulin Ratio Venous Blood Potassium 3.6 Urine Color Urine Appearance Urine pH Ur Specific [place] Urine Protein Urine Glucose (UA) Urine Ketones Urine Blood Urine Nitrate Urine Bilirubin Urine Urobilinogen Ur Leukocyte Esterase 12/17/18 12/17/18 04:49 07:45 WBC RBC Hgb Hct MCV MCH MCHC RDW Plt Count MPV Neut % (Auto) Lymph % (Auto) [place] % (Auto) Eos % (Auto) Baso % (Auto) Lymph # (Auto) [place] # (Auto) Eos # (Auto) Baso # (Auto) Absolute Neuts (auto) PT INR APTT pO2 VBG pH VBG pCO2 VBG HCO3 VBG Total CO2 VBG O2 Sat (Calc) VBG Base Excess VBG Potassium Sodium 140 Chloride 103 Glucose Lactate FiO2 Potassium 3.9 Carbon Dioxide 30 Anion Gap 11 BUN 27 H Creatinine 1.4 Est GFR ( Amer) 58 Est GFR (Non-Af Amer) 48 Random Glucose 124 H Calcium 8.9 Total Bilirubin 0.6 AST 22 ALT 17 Alkaline Phosphatase 71 Total Protein 6.7 Albumin 3.4 Globulin 3.3 Albumin/Globulin Ratio 1.0 L Venous Blood Potassium Urine Color Yellow Urine Appearance Clear Urine pH 7.0 Ur Specific [place] 1.015 Urine Protein Negative Urine Glucose (UA) Negative Urine Ketones Negative Urine Blood Negative Urine Nitrate Negative Urine Bilirubin Negative Urine Urobilinogen 4.0 H Ur Leukocyte Esterase Negative Attending/Attestation - Attestation I have personally seen and examined this patient.: Yes I have fully participated in the care of the patient.: Yes I have reviewed all pertinent clinical information: Yes
[2018-12-17 14:08] VITALS: BMI 23.1
[2018-12-17] MEDS ORDERED: Pneumococcal 23-Valent Vaccine IM ONE (14:10)
[2018-12-17] MEDS: Nystatin 100,000 Units/ml Oral Susp 5 ml UD PO SCH ×3 (15:04→22:04)
--- NOTE | 2018-12-17 16:29 | US ---
Date of service: 12/17/2018 HISTORY: 2.4cm R renal cyst/mass GB sludge onCT, rec u/s COMPARISON: None. TECHNIQUE: Sonographic evaluation of the abdomen. FINDINGS: LIVER: Measures 14.8 cm. Normal echogenicity of the liver parenchyma. No mass. No intrahepatic bile duct dilatation. 1.6 cm cyst in the left lobe of the liver. Normal flow direction in the hepatic and portal veins. GALLBLADDER: Gallstones and sludge COMMON BILE DUCT: Measures 5.5 mm. No stones. No dilatation. PANCREAS: Unremarkable as visualized. No mass. No ductal dilatation. RIGHT KIDNEY: Measures 10.4 x 5.4 x 5.4cm. Normal echogenicity. No calculus, mass, or hydronephrosis. Multiple cysts LEFT KIDNEY: Measures 10.7 x 5.0 x 5.0cm. Normal echogenicity. No calculus, mass, or hydronephrosis. Multiple cysts. There is a collection of cysts in the upper pole of the left kidney measuring 4.8 x 8 cm SPLEEN: Normal in size and contour. No mass. The spleen measures 8.6 x 3.8 x 3.7 cm AORTA: No aneurysmal dilatation. IVC: Unremarkable. OTHER FINDINGS: None. IMPRESSION: Renal cysts. Gallbladder sludge and stones
--- NOTE | 2018-12-17 19:54 | CARD ---
APPROVED REPORT Date of service: 12/17/2018 EKG Measurement Heart [id number] <Conclusion> Sinus rhythm with 1st degree AV block Otherwise normal ECG
--- NOTE | 2018-12-18 00:21 | HP ---
DATE OF EXAM: 12/17/2018 CHIEF COMPLAINT: Fall at home. HISTORY OF PRESENT ILLNESS: This is an 88-year-old man who was at home, lives by himself with family and close attendants. He was going to the bathroom early this morning, stumbled over the marble saddle going into the bathroom and fell hitting his left eyebrow on the sink with the bathtub. He was bleeding, but managed to get himself up, moved to the other room and called his family. He reported no loss of consciousness, no downtime. He denied chest pain, nausea, vomiting, palpitations, diaphoresis, headache, lightheadedness, aura, or loss of consciousness. His family saw the laceration and bleeding, called the ambulance, and brought him to the emergency room. In the ER, he was evaluated and arrangements were made for him and it was suggested that he be admitted for at least overnight observation since it was early Thursday morning. PAST MEDICAL HISTORY: Significant for hypertension and ventricular ectopy as well as murmurs, , and MR. He was hospitalized [facility] 10/2017 for a fall, which was questionable syncope as well. Other than that he has a history of coronary artery disease with cath and stent placement 11/2017. He sees Dr. Medrano periodically and he has [facility] sore on the sacral area. HOME MEDICATIONS: Include Ambien, losartan, nortriptyline, metoprolol, and 81 mg of aspirin. SOCIAL HISTORY: He does not smoke, but he is a former smoker. He occasionally drinks alcohol, but very infrequently. He is a with 3 sons. ALLERGIES: HE IS ALLERGIC TO PENICILLIN WITH TYPE OF REACTION UNKNOWN. 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 He denies chest pain, shortness of breath, GI or neurologic symptoms. He is in the midst of a work up for unexplained weight loss of 30 pounds in the past year. PHYSICAL EXAMINATION: GENERAL: The patient was seen in room 263, bed 2 this Thursday morning with his son Tank and his [id number]-aje Sarwat, at the bedside. He is awake, alert, clear, in good spirits, and doing rather well for 88-year-old. HEENT: Head and neck was traumatic in the sense of suture is placed over the lateral left eyebrow. There is no evidence of recent weight loss. Mucous membranes were moist. Tongue was slightly brown, discolored with perhaps some bacterial overgrowth. NECK: Supple without masses. There is no JVD. No carotid bruits. LUNGS: Clear. HEART: Regular with harsh murmurs of aortic stenosis and a louder murmur of mitral regurgitation present. ABDOMEN: Thin and nontender. EXTREMITIES: Showed no edema. On the right gluteal cheek was a 1-inch diameter approximately 2.5 cm red blistered ulceration. IMPRESSION: 1. Fall at home. 2. Valvular heart disease with murmurs of aortic stenosis and mitral regurgitation. 3. Recent weight loss approximately 30 pounds in the last 8 months. 4. Ventricular ectopy. 5. Decubitus 2.5 cm round decubitus on the mid right cheek right gluteus. 6. unexplained weight loss 7. Loss of sense of taste but with normal sense of smell 8. Mild bacterial overgrowth of tongue 9. H/O coronary artery disease, s/p cath & stent placement 11/2017. PLAN: The patient will be admitted for overnight observation. We will check some morning labs. I will ask physical therapy to ambulate with him. We will resume some medications. I will discontinue his Ambien as this may have been a factor in morning grogginess or sleepiness if that in fact was an issue, even though the patient denied it. I reviewed the CAT scan of the head done 5 days ago because of the unexplained weight loss workup. CAT scan showed a 2.4 cm lesion on the kidney and some sludge in the gallbladder recommending ultrasound to follow up, so therefore, I will order the ultrasound of the abdomen for evaluation of these 2 CT scan findings. We will watch him overnight and hopefully ready for discharge in the morning. Will consider completing the unexplained weight loss work- up with a CT of the chest if that has not already been done. Petr Aguilar MD [facility]
[2018-12-18 06:16] VITALS: O2SAT 96
[2018-12-18] MEDS: Nystatin 100,000 Units/ml Oral Susp 5 ml UD PO SCH (09:36)
--- NOTE | 2018-12-18 11:38 | CT ---
Date of service: 12/18/2018 PROCEDURE: CT Chest without contrast HISTORY: unexplained weight loss, h/o tob use COMPARISON: None available. TECHNIQUE: Contiguous axial images were obtained through the chest without intravenous contrast enhancement. Sagittal and coronal reconstructions were performed. Radiation dose: Total exam DLP = 512.28 mGy-cm. This CT exam was performed using one or more of the following dose reduction techniques: Automated exposure control, adjustment of the mA and/or kV according to patient size, and/or use of iterative reconstruction technique. FINDINGS: LUNGS: There is some linear scarring along the major fissure at the left lung base. There is no evidence of mass or infiltrate. MEDIASTINUM: Unremarkable thoracic aorta. No aneurysm. Normal sized heart. Main pulmonary artery unremarkable. No vascular congestion. No lymphadenopathy. Aortic and coronary artery calcification PLEURA: Small pleural effusions BONES: No fracture. No destructive lesion. UPPER ABDOMEN: Grossly unremarkable. OTHER FINDINGS: None. IMPRESSION: Unremarkable non-contrast enhanced CT of the chest.
[2018-12-18 12:27] VITALS: BP 103/52; RESP 19; TEMP 97.1
[2018-12-18 14:25] VITALS: PULSE 80
--- NOTE | 2018-12-20 08:37 | DS ---
HOSPITAL COURSE: This is an 88-year-old man I have known since his son and I were in a [employer] together as youths. He has been my patient for many years. He has only one prior hospitalization when he came to [facility] after syncopal episode, cardiac workup resulted in stent placement in November 2017. For this addmission, the patient fell at home. He recalls falling over the bathroom saddle, sustaining a laceration to his lateral left eyebrow, which was sutured in emergency room. He was admitted for overnight observation to be sure he was steady on his gait. There is no loss of consciousness, double vision, blurry vision, persistent headaches, chest pain, tightness, shortness of breath, etc. The patient did well in the hospital. He was monitored, electrolytes and vital signs were stable. The question arose as to whether this fall could in any way be related to either his Ambien/Zolpidem taken at bedtime or his losartan especially in view of the fact that here in the hospital his blood pressure was bit on the low side. So, his losartan and zolpidem were held. The patient had been in the midst of an unexplained weight loss workup by his primary care physician, Dr. José Aguilar, CT scan was done only 5 days before the date of this admission at a local radiology facility. I reviewed that scan and it showed a 2 cm lesion with possible cyst on the kidney as well as gallstones. Ultrasound was recommended, so as part of the weight loss and fall, workup ultrasound was done, which showed the renal lesion to be is actually cystic and did in fact confirm gallstones and sludge present. CT scan of the abdomen and pelvis had already been done. CT scan of the head was done in the emergency room. CT scan of the chest was ordered as part of the workup as well, which was unremarkable. The patient complained of lose sense of taste, yet he says he had a good sense of smell. His tongue showed some bacterial overgrow, so he was treated with nystatin swish and swallow. He had a shallow decubitus on the cheek of the right buttock. He had a decubitus a year ago on the crack of the buttock, which is now completely healed. Gluteal lesion was treated with Silvadene cream. He was comfortable and ready to go home. Prescriptions were sent in for nystatin and swish and swallow as well as Silvadene cream. He was given some oxide type dressings, instructed to follow up with us in the office in later this week. Will ask [facility] to see for BP monitoring, wound care, med instruction, BP monitoring, nutrition in view of weight loss, etc... FINAL DISCHARGE DIAGNOSES: 1. Mechanical fall at home. 2. Laceration over the lateral left eyebrow. 3. Unexplained weight loss, workup in progress. 4. Coronary artery disease. 5. Status post percutaneous transluminal coronary angioplasty, stent placement November 2017. 6. Murmurs of aortic stenosis and mitral regurgitation. 7. Hypertension. 8. Frequent ventricular premature ventricular contractions on telemetry in the past. 9. Right gluteal decubitus. Petr Aguilar MD MTDD
== END 2018-12-18 14:27 | disposition home or self-care (01) ==
LOC: ED 03:54 → ERH 07:50 → 2RNO 08:53
PROVIDERS: ADMIT Internal Medicine; ATTEND Internal Medicine
DX: S01.112A Laceration without foreign body of left eyelid and periocular area, initial encounter (principal); S01.91XA Laceration without foreign body of unspecified part of head, initial encounter; W01.0XXA Fall on same level from slipping, tripping and stumbling without subsequent striking against object, initial encounter; L89.319 Pressure ulcer of right buttock, unspecified stage; I08.0 Rheumatic disorders of both mitral and aortic valves; I10 Essential (primary) hypertension; I25.10 Atherosclerotic heart disease of native coronary artery without angina pectoris; Z95.5 Presence of coronary angioplasty implant and graft; I49.3 Ventricular premature depolarization; Y92.002 Bathroom of unspecified non-institutional (private) residence as the place of occurrence of the external cause; Z79.82 Long term (current) use of aspirin; Z87.891 Personal history of nicotine dependence; M19.90 Unspecified osteoarthritis, unspecified site; Z88.0 Allergy status to penicillin; R63.4 Abnormal weight loss
CPT/HCPCS: 70450; 71045; 71250; 76700; 80053; 81003; 82803; 85025; 85610; 85730; 93005; 99285; G0378